=== PATIENT | male | born 1985 | race African-American/Black ===

== ENCOUNTER 2023-02-17 07:30 | Observation (INO) ==
[2023-02-17 08:08] LABS: Hematocrit 44.4 % (38-53); Hemoglobin 14.6 g/dL (13.2-16.3); Mean Corpuscular Hemoglobin 23.1 pg (27-33); Mean Corpuscular Hgb Conc 32.9 g/dL (31-36); Mean Corpuscular Volume 70.2 fL (80-97); Mean Platelet Volume 7.5 fL (7.5-11.2); Platelet Count 259 10^3/uL (150-450); Red Blood Count 6.33 10^6/uL (4.06-5.63); Red Cell Distribution Width 16.5 % (12-17); White Blood Count 5.6 10^3/uL (3.6-10.2)
[2023-02-17 08:10] LABS: INR 1.09 (0.88-1.18)
[2023-02-17 09:11] LABS: High Sensitivity Troponin 1 Hr 7 pg/mL (<20)
[2023-02-17 09:16] LABS: ABS Eosinophils 0.1 10^3/uL (0.0-0.5); ABS Monocytes 0.5 10^3/uL (0.0-1.1); ABS Neutrophils 2.9 10^3/uL (1.5-7.6); ABS Nucleated RBC 0.01 10^3/ul; Eosinophil % 2.4 %; Hypochromasia 2+; Lymphocyte % 35.4 %; Microcytosis 2+; Nucleated Red Blood Cells % 0.1 /100 WBC (0.0-0.4)
[2023-02-17 09:59] LABS: Albumin 4.1 g/dL (3.2-5.2); Potassium 3.6 mmol/L (3.5-5.0); Total Bilirubin 0.6 mg/dL (0.2-1.0)
[2023-02-17 10:05] LABS: Albumin/Globulin Ratio 1.5 (1-3); Creatinine, Serum 1.15 mg/dL (0.67-1.17); Globulin 2.8 g/dL (2-4); Total Protein 6.9 g/dL (6.4-8.9); eGFR CKD-EPI 84.1 (>60)
[2023-02-17 13:05] LABS: HDL Cholesterol 50.6 mg/dL
[2023-02-17 13:36] LABS: TSH Ultra Thyroid Stim Horm 1.2 mcIU/mL (0.34-5.60)
[2023-02-17 13:47] LABS: Folate 16.51 ng/mL (5.90-24.80)
[2023-02-17] MEDS ORDERED: Enoxaparin 40 MG/0.4 ML SYR SUBCUT SCH (14:00)
[2023-02-17 14:05] LABS: Magnesium 2.1 mg/dL (1.9-2.7)
[2023-02-17] MEDS ORDERED: Gadoteridol (CONTRAST) 279.3 MG/ML 10 ML IV ONE (17:52)
[2023-02-18 05:48] VITALS: BP 143/95
[2023-02-18 06:25] LABS: ABS Eosinophils 0.1 10^3/uL (0.0-0.5); ABS Lymphocytes 2.2 10^3/uL (1.0-4.8); ABS Monocytes 0.5 10^3/uL (0.0-1.1); ABS Neutrophils 3.2 10^3/uL (1.5-7.6); ABS Nucleated RBC 0.01 10^3/ul; Eosinophil % 2.5 %; Hematocrit 43.2 % (38-53); Hemoglobin 14.1 g/dL (13.2-16.3); Lymphocyte % 36.6 %; Mean Corpuscular Hemoglobin 23.2 pg (27-33); Mean Corpuscular Hgb Conc 32.7 g/dL (31-36); Mean Corpuscular Volume 70.8 fL (80-97); Mean Platelet Volume 7.7 fL (7.5-11.2); Nucleated Red Blood Cells % 0.2 /100 WBC (0.0-0.4); Platelet Count 255 10^3/uL (150-450); Red Cell Distribution Width 16.2 % (12-17); White Blood Count 6.1 10^3/uL (3.6-10.2)
[2023-02-18 06:38] LABS: Calcium 8.9 mg/dL (8.6-10.3); Creatinine, Serum 1.11 mg/dL (0.67-1.17); Potassium 3.8 mmol/L (3.5-5.0); eGFR CKD-EPI 87.7 (>60)
[2023-02-18] MEDS ORDERED: Aspirin EC 81 mg TAB.EC (enteric coated) PO ONE (10:10)
[2023-02-20 19:21] LABS: Anaplasma phagocytophilum Negative (Negative); B. miyamotoi PCR, B Negative (Negative); Babesia divergens/MO-1 Negative (Negative); Babesia ducani Negative (Negative); Ehrlichia chaffeensis Negative (Negative); Ehrlichia ewingii/canis Negative (Negative); Ehrlichia muris eauclairensis Negative (Negative)
[2023-02-22 15:49] LABS: IgG Immunoblot Negative (Negative); IgM Immunoblot Uninterpretable (Negative)
== END 2023-02-18 10:30 | disposition home or self-care (01) ==
LOC: ED 07:30 → EDHOLD 07:30 → ED 10:18 → SUATTDRO 11:19 → EDHOLD 14:01 → MED 14:30
PROVIDERS: ADMIT Internal Medicine; ATTEND Internal Medicine